=== PATIENT | male | born 1975 | race Caucasian/White ===

== ENCOUNTER 2020-03-03 07:25 | Inpatient (IN) | payer OTHER ==
[~2020-03-03] VITALS: Ht 180.3 cm; Wt 120.0 kg
[~2020-03-03 07:25] MED LIST: METH10SO PO
[2020-03-03] MEDS: LIDOCAINE 0.5% 50 ML VIAL INJ ONE ×2 (08:00→08:48)
[2020-03-03] MEDS ORDERED: SODIUM CHLORIDE 0.9% 1,000 ML IV ONE (08:00)
[2020-03-03] MEDS: ACETAMINOPHEN 325 MG TABLET PO ONE ×2 (08:00→08:10)
[2020-03-03] MEDS ORDERED: ONDANSETRON HCL 4 MG/2 ML VIAL IVP ONE (08:00)
[2020-03-03] MEDS ORDERED: VANCOMYCIN HCL 1.25 GM in DEXTROSE 5%-WATER 250 ML IV ONE (08:00)
[2020-03-03] MEDS ORDERED: CefTRIAXone 1 GM/DEXTROSE 50 ML IV ONE (08:00)
[2020-03-03] MEDS ORDERED: SODIUM CHLORIDE 0.9% 3,600 ML IV ONE (08:00)
[2020-03-03 08:39] LABS: BASOPHILS % (AUTO) 0.2 % (0.0-2.0); EOSINOPHILS % (AUTO) 0.7 % (1.0-6.0); HEMATOCRIT 45.4 % (41-53); HEMOGLOBIN 14.7 g/dL (13.5-17.5); LYMPHOCYTES # (AUTO) 1.7 K/uL (1.0-4.8); LYMPHOCYTES % (AUTO) 13.5 % (22.0-44.0); MEAN CORPUSCULAR HEMOGLOBIN 27.4 pg (26.0-34.0); MEAN CORPUSCULAR HGB CONC 32.4 G/dL (31.0-37.0); MEAN CORPUSCULAR VOLUME 84 fL (80-100); MONOCYTES # (AUTO) 1.3 K/uL (0.1-1.0); MONOCYTES % (AUTO) 9.9 % (2.0-9.0); NEUTROPHILS # (AUTO) 9.7 K/uL (1.8-7.7); NEUTROPHILS % (AUTO) 75.7 % (40.0-70.0); PLATELET COUNT (AUTO) 195 K/uL (150-450); RED BLOOD CELL COUNT(AUTO) 5.38 MIL/uL (4.50-5.90); RED CELL DISTRIBUTION WIDTH 14.5 % (11.5-14.5)
[2020-03-03 09:02] LABS: ANION GAP 13 mmol/L (8-16); CALCIUM, TOTAL 9.4 mg/dL (8.8-10.5); CARBON DIOXIDE 26 mmol/L (22-29); CHLORIDE 95 mmol/L (98-107); CREATININE 1.09 mg/dL (0.60-1.30); GLOMERULAR FILTR. RATE CALC > 60 mL/min (>60); GLUCOSE,RANDOM 383 mg/dL (70-110); POTASSIUM 3.9 mmol/L (3.5-5.1); SODIUM SERUM 134 mmol/L (136-145); UREA NITROGEN, BLOOD 16 mg/dL (7-18)
[2020-03-03 09:08] LABS: ALANINE AMINOTRANSFERASE 81 U/L (12-78); ALBUMIN 3.1 g/dL (3.4-5.0); ALKALINE PHOSPHATASE 59 U/L (46-116); ASPARTATE AMINOTRANSFERASE 64 U/L (15-37); BILIRUBIN,TOTAL 0.7 mg/dL (0.1-1.0); LIPASE 93 U/L (73-393); TOTAL PROTEIN, SERUM 9.4 g/dL (6.4-8.2)
[2020-03-03] MEDS ORDERED: LIDOCAINE 1% 10 ML VIAL INJ ONE (09:15)
[2020-03-03] MEDS ORDERED: ONDANSETRON HCL 4 MG/2 ML VIAL IVP PRN ×2 (10:00→14:15)
[2020-03-03] MEDS ORDERED: 0.9% SODIUM CHLORIDE 10 ML SYRINGE IVP PRN (10:00)
[2020-03-03] MEDS ORDERED: ACETAMINOPHEN 325 MG TABLET PO PRN ×2 (10:00→14:15)
[2020-03-03] MEDS ORDERED: MORPHINE SULFATE 4 MG/ML SYRINGE IVP ONE (10:45)
[2020-03-03] MEDS ORDERED: AZITHROMYCIN 500 MG/NS 250 ML IV ONE (11:15)
[2020-03-03 11:46] VITALS: BP 130/80
[2020-03-03] MEDS ORDERED: SODIUM CHLORIDE 0.9% 500 ML IV ONE (14:10)
[2020-03-03] MEDS ORDERED: MAGNESIUM HYDROXIDE SUSPENSION 30 ML UDCUP PO PRN (14:15)
[2020-03-03] MEDS ORDERED: BISACODYL 10 MG RECTAL RECTAL SUPPOSITORY PR PRN (14:15)
[2020-03-03] MEDS: MORPHINE SULFATE 2 MG/ML SYRINGE IVP PRN ×2 (14:42→20:05)
[2020-03-03 16:10] VITALS: BP 137/68
[2020-03-03] MEDS: HEPARIN SODIUM,PORCINE 5,000 UNITS/ML VIAL SQ SCH (17:41)
[2020-03-03] MEDS: VANCOMYCIN HCL 1.25 GM in DEXTROSE 5%-WATER 250 ML IV SCH (17:45)
[2020-03-03] MEDS: OxyCODONE HCL/ACETAMINOPHEN 10-325 MG TABLET PO PRN (17:59)
[2020-03-03 19:45] VITALS: BP 134/76
[2020-03-03] MEDS: DOCUSATE SODIUM 100 MG CAPSULE PO SCH (20:05)
[2020-03-03] MEDS: ZOLPIDEM TARTRATE 5 MG TABLET PO PRN (20:05)
[2020-03-04] MEDS: HEPARIN SODIUM,PORCINE 5,000 UNITS/ML VIAL SQ SCH ×3 (00:07→15:36)
[2020-03-04] MEDS: VANCOMYCIN HCL 1.25 GM in DEXTROSE 5%-WATER 250 ML IV SCH ×3 (00:08→15:19)
[2020-03-04] MEDS: MORPHINE SULFATE 2 MG/ML SYRINGE IVP PRN ×3 (02:32→20:06)
[2020-03-04 05:00] VITALS: BP 145/93
[2020-03-04] MEDS: OxyCODONE HCL/ACETAMINOPHEN 10-325 MG TABLET PO PRN ×2 (05:12→18:39)
[2020-03-04 08:30] LABS: APPEARANCE,URINE CLEAR (CLEAR); BILIRUBIN,URINE NEGATIVE (NEGATIVE); GLUCOSE, URINE (UA) 250 mg/dL (NEGATIVE); KETONES,URINE NEGATIVE (NEGATIVE); LEUKOCYTE ESTERASE ,URINE NEGATIVE (NEGATIVE); NITRATE,URINE NEGATIVE (NEGATIVE); OCCULT BLOOD,URINE NEGATIVE (NEGATIVE); PROTEIN,URINE NEGATIVE (NEGATIVE)
[2020-03-04 08:39] LABS: BACTERIA,URINE None Seen /HPF (None Seen); RBC,URINE None Seen /HPF (0-2); WBC,URINE None Seen /HPF (0-5)
[2020-03-04 08:49] VITALS: BP 135/70
[2020-03-04] MEDS: DOCUSATE SODIUM 100 MG CAPSULE PO SCH ×2 (09:00→21:00)
[2020-03-04] MEDS: PANTOPRAZOLE SODIUM 40 MG DR TABLET PO SCH (09:00)
[2020-03-04] MEDS: METHADONE HCL 10 MG/5 ML SOLUTION ORAL.SYG PO SCH (09:24)
[2020-03-04] MEDS ORDERED: RINGERS SOLUTION,LACTATED 1,000 ML IV ONE ×2 (10:00→10:04)
[2020-03-04 10:35] LABS: BASOPHILS % (AUTO) 0.7 % (0.0-2.0); HEMATOCRIT 40.6 % (41-53); HEMOGLOBIN 13.4 g/dL (13.5-17.5); LYMPHOCYTES # (AUTO) 2.3 K/uL (1.0-4.8); LYMPHOCYTES % (AUTO) 37.1 % (22.0-44.0); MEAN CORPUSCULAR HEMOGLOBIN 27.8 pg (26.0-34.0); MEAN CORPUSCULAR VOLUME 84 fL (80-100); MONOCYTES # (AUTO) 0.6 K/uL (0.1-1.0); MONOCYTES % (AUTO) 9.6 % (2.0-9.0); NEUTROPHILS # (AUTO) 3.1 K/uL (1.8-7.7); NEUTROPHILS % (AUTO) 49.6 % (40.0-70.0); PLATELET COUNT (AUTO) 175 K/uL (150-450); RED BLOOD CELL COUNT(AUTO) 4.82 MIL/uL (4.50-5.90); RED CELL DISTRIBUTION WIDTH 14.3 % (11.5-14.5)
[2020-03-04 10:45] LABS: ANION GAP 6 mmol/L (8-16); CALCIUM, TOTAL 8.8 mg/dL (8.8-10.5); CARBON DIOXIDE 29 mmol/L (22-29); CHLORIDE 100 mmol/L (98-107); GLOMERULAR FILTR. RATE CALC > 60 mL/min (>60); GLUCOSE,RANDOM 296 mg/dL (70-110); POTASSIUM 3.9 mmol/L (3.5-5.1); SODIUM SERUM 135 mmol/L (136-145); UREA NITROGEN, BLOOD 13 mg/dL (7-18)
[2020-03-04] MEDS ORDERED: INSULIN REGULAR, HUMAN 100 UNITS/ML SQ ONE (10:45)
[2020-03-04 11:22] LABS: INR 1.1 (0.9-1.1)
[2020-03-04 11:23] LABS: GLUCOMETER DEV NAME(LOC) 6S.1; GLUCOSE,POINT OF CARE 285 MG/DL (70-110)
[2020-03-04] MEDS ORDERED: FentaNYL CITRATE-PF 100 MCG/2 ML VIAL IVP PRN (11:30)
[2020-03-04] MEDS ORDERED: MEPERIDINE-PF 25 MG/ML VIAL IVP PRN (11:30)
[2020-03-04] MEDS ORDERED: MORPHINE SULFATE 4 MG/ML SYRINGE IVP PRN (12:00)
[2020-03-04] MEDS ORDERED: HYDROmorphone 2 MG/ML SYRINGE IVP PRN (12:00)
[2020-03-04] MEDS ORDERED: HYDROmorphone 2 MG/ML SYRINGE ONE (12:12)
[2020-03-04] MEDS: HYDROmorphone 2 MG/ML SYRINGE IVP PRN ×2 (12:15→12:25)
[2020-03-04] MEDS ORDERED: MEPERIDINE-PF 25 MG/ML VIAL ONE (12:26)
[2020-03-04 13:30] VITALS: BP 121/73
[2020-03-04 15:38] VITALS: BP 144/80
[2020-03-04] MEDS: OXYGEN THERAPY IH SCH (20:00)
[2020-03-04] MEDS: NICOTINE 14 MG/24 HOUR PATCH TD SCH (20:07)
[2020-03-04 20:09] VITALS: BP 143/85
[2020-03-04] MEDS: ZOLPIDEM TARTRATE 5 MG TABLET PO PRN (20:27)
[2020-03-05] MEDS: VANCOMYCIN HCL 1.25 GM in DEXTROSE 5%-WATER 250 ML IV SCH ×3 (00:25→16:04)
[2020-03-05] MEDS: MORPHINE SULFATE 2 MG/ML SYRINGE IVP PRN ×6 (00:42→22:39)
[2020-03-05 00:48] VITALS: BP 133/73
[2020-03-05] MEDS ORDERED: SUCCINYLCHOLINE CHLORIDE 20 MG/ML 10 ML VIAL IVP ONE (05:22)
[2020-03-05] MEDS ORDERED: PROPOFOL 1% 20 ML VIAL IVP ONE (05:22)
[2020-03-05] MEDS ORDERED: ONDANSETRON HCL 4 MG/2 ML VIAL IVP ONE (05:22)
[2020-03-05] MEDS ORDERED: DEXAMETHASONE SOD PHOS 4 MG/ML VIAL IVP ONE (05:22)
[2020-03-05 06:56] LABS: GLUCOMETER DEV NAME(LOC) 6S.1; GLUCOSE,POINT OF CARE 392 MG/DL (70-110)
[2020-03-05 08:00] LABS: ANION GAP 12 mmol/L (8-16); CALCIUM, TOTAL 9.4 mg/dL (8.8-10.5); CARBON DIOXIDE 25 mmol/L (22-29); CHLORIDE 98 mmol/L (98-107); CREATININE 1.02 mg/dL (0.60-1.30); GLOMERULAR FILTR. RATE CALC > 60 mL/min (>60); POTASSIUM 3.8 mmol/L (3.5-5.1); SODIUM SERUM 135 mmol/L (136-145); UREA NITROGEN, BLOOD 22 mg/dL (7-18)
[2020-03-05] MEDS: OXYGEN THERAPY IH SCH ×2 (08:00→20:00)
[2020-03-05 08:14] LABS: GLUCOSE,RANDOM 407 mg/dL (70-110)
[2020-03-05 08:24] VITALS: BP 110/70
[2020-03-05] MEDS ORDERED: INSULIN LISPRO 100 UNITS/ML SQ ONE ×2 (08:30→17:15)
[2020-03-05] MEDS ORDERED: INSULIN LISPRO 100 UNITS/ML SQ PRN (08:30)
[2020-03-05] MEDS ORDERED: DEXTROSE 50%-WATER 25 GM/50 ML SYRINGE IVP PRN ×2 (08:30→17:15)
[2020-03-05] MEDS: METHADONE HCL 10 MG/5 ML SOLUTION ORAL.SYG PO SCH (08:39)
[2020-03-05] MEDS: HEPARIN SODIUM,PORCINE 5,000 UNITS/ML VIAL SQ SCH ×4 (08:41→22:40)
[2020-03-05] MEDS: PANTOPRAZOLE SODIUM 40 MG DR TABLET PO SCH (08:44)
[2020-03-05] MEDS: DOCUSATE SODIUM 100 MG CAPSULE PO SCH ×2 (08:44→22:14)
[2020-03-05] MEDS: NICOTINE 14 MG/24 HOUR PATCH TD SCH (10:18)
[2020-03-05 11:54] VITALS: BP 134/86
[2020-03-05 15:48] VITALS: BP 135/62
[2020-03-05] MEDS: NICOTINE 21 MG/24 HOUR PATCH TD SCH (16:06)
[2020-03-05] MEDS: OxyCODONE HCL/ACETAMINOPHEN 10-325 MG TABLET PO PRN ×3 (16:07→21:59)
[2020-03-05 17:04] LABS: GLUCOMETER DEV NAME(LOC) 6N.2; GLUCOSE,POINT OF CARE 388 MG/DL (70-110)
[2020-03-05] MEDS: MetFORMIN HCL 500 MG TABLET PO SCH (17:06)
[2020-03-05 17:36] LABS: GLUCOMETER DEV NAME(LOC) 6S.1; GLUCOSE,POINT OF CARE 478 MG/DL (70-110)
[2020-03-05 20:11] VITALS: BP 130/87
[2020-03-05] MEDS: ZOLPIDEM TARTRATE 5 MG TABLET PO PRN (21:59)
[2020-03-05] MEDS: INSULIN LISPRO 100 UNITS/ML SQ PRN (22:12)
[2020-03-05 22:29] LABS: GLUCOMETER DEV NAME(LOC) 6N.2; GLUCOSE,POINT OF CARE 369 MG/DL (70-110)
[2020-03-06] MEDS: VANCOMYCIN HCL 1.25 GM in DEXTROSE 5%-WATER 250 ML IV SCH ×3 (00:17→17:10)
[2020-03-06] MEDS: MORPHINE SULFATE 2 MG/ML SYRINGE IVP PRN ×6 (03:02→23:33)
[2020-03-06] MEDS: OxyCODONE HCL/ACETAMINOPHEN 10-325 MG TABLET PO PRN ×2 (05:41→12:55)
[2020-03-06] MEDS: MetFORMIN HCL 500 MG TABLET PO SCH ×2 (05:41→17:11)
[2020-03-06] MEDS: INSULIN LISPRO 100 UNITS/ML SQ PRN ×4 (05:45→20:57)
[2020-03-06] MEDS ORDERED: MIDAZOLAM HCL 2 MG/2 ML VIAL IVP ONE (06:05)
[2020-03-06] MEDS ORDERED: FentaNYL CITRATE-PF 100 MCG/2 ML VIAL IVP ONE (06:05)
[2020-03-06 06:18] LABS: GLUCOMETER DEV NAME(LOC) 6N.2; GLUCOSE,POINT OF CARE 196 MG/DL (70-110)
[2020-03-06] MEDS: PANTOPRAZOLE SODIUM 40 MG DR TABLET PO SCH (08:27)
[2020-03-06] MEDS: METHADONE HCL 10 MG/5 ML SOLUTION ORAL.SYG PO SCH (08:27)
[2020-03-06] MEDS: NICOTINE 21 MG/24 HOUR PATCH TD SCH (08:27)
[2020-03-06] MEDS: DOCUSATE SODIUM 100 MG CAPSULE PO SCH ×3 (08:27→21:00)
[2020-03-06] MEDS: HEPARIN SODIUM,PORCINE 5,000 UNITS/ML VIAL SQ SCH ×2 (08:28→17:11)
[2020-03-06 11:35] LABS: GLUCOMETER DEV NAME(LOC) 6N.2; GLUCOSE,POINT OF CARE 337 MG/DL (70-110)
[2020-03-06] MEDS: ALPRAZolam 0.5 MG TABLET PO PRN (17:11)
[2020-03-06] MEDS: GlipiZIDE 5 MG TABLET PO SCH (17:11)
[2020-03-06 18:01] LABS: GLUCOMETER DEV NAME(LOC) 6N.2; GLUCOSE,POINT OF CARE 229 MG/DL (70-110)
[2020-03-06] MEDS: ZOLPIDEM TARTRATE 5 MG TABLET PO PRN (23:41)
[2020-03-07] MEDS: VANCOMYCIN HCL 1.25 GM in DEXTROSE 5%-WATER 250 ML IV SCH ×2 (00:33→09:50)
[2020-03-07] MEDS: HEPARIN SODIUM,PORCINE 5,000 UNITS/ML VIAL SQ SCH ×4 (00:33→23:52)
[2020-03-07] MEDS: MetFORMIN HCL 500 MG TABLET PO SCH ×2 (06:19→17:32)
[2020-03-07] MEDS: GlipiZIDE 5 MG TABLET PO SCH ×2 (06:20→17:33)
[2020-03-07] MEDS: MORPHINE SULFATE 2 MG/ML SYRINGE IVP PRN (06:31)
[2020-03-07] MEDS: INSULIN LISPRO 100 UNITS/ML SQ PRN ×4 (06:35→21:05)
[2020-03-07 06:38] LABS: GLUCOMETER DEV NAME(LOC) 6S.1; GLUCOSE,POINT OF CARE 313 MG/DL (70-110)
[2020-03-07] MEDS: OXYGEN THERAPY IH SCH ×2 (08:00→20:00)
[2020-03-07 08:50] VITALS: BP 157/74
[2020-03-07] MEDS: OxyCODONE HCL/ACETAMINOPHEN 10-325 MG TABLET PO PRN (09:51)
[2020-03-07] MEDS: PANTOPRAZOLE SODIUM 40 MG DR TABLET PO SCH (09:51)
[2020-03-07] MEDS: DOCUSATE SODIUM 100 MG CAPSULE PO SCH ×2 (09:51→20:54)
[2020-03-07] MEDS: METHADONE HCL 10 MG/5 ML SOLUTION ORAL.SYG PO SCH (09:51)
[2020-03-07] MEDS: MULTIVITAMINS WITH MINERALS, THERAPEUTIC TABLET PO SCH (09:52)
[2020-03-07] MEDS: NICOTINE 21 MG/24 HOUR PATCH TD SCH (09:52)
[2020-03-07 10:51] LABS: ANION GAP 9 mmol/L (8-16); CALCIUM, TOTAL 9.9 mg/dL (8.8-10.5); CARBON DIOXIDE 25 mmol/L (22-29); CHLORIDE 98 mmol/L (98-107); CREATININE 1.04 mg/dL (0.60-1.30); GLOMERULAR FILTR. RATE CALC > 60 mL/min (>60); GLUCOSE,RANDOM 219 mg/dL (70-110); POTASSIUM 4.7 mmol/L (3.5-5.1); SODIUM SERUM 132 mmol/L (136-145); UREA NITROGEN, BLOOD 22 mg/dL (7-18); VANCOMYCIN,RANDOM 26.8 mcg/mL (25.0-50.0)
[2020-03-07 11:19] LABS: GLUCOMETER DEV NAME(LOC) 6N.2; GLUCOSE,POINT OF CARE 182 MG/DL (70-110)
[2020-03-07 11:44] LABS: GLUCOMETER DEV NAME(LOC) 6N.2; GLUCOSE,POINT OF CARE 218 MG/DL (70-110)
[2020-03-07] MEDS: ALPRAZolam 0.5 MG TABLET PO PRN ×2 (11:44→23:49)
[2020-03-07] MEDS: HYDROmorphone HCL 2 MG TABLET PO PRN ×2 (13:03→20:54)
[2020-03-07 15:15] VITALS: BP 118/63
[2020-03-07 17:27] LABS: BASOPHILS % (AUTO) 0.5 % (0.0-2.0); EOSINOPHILS % (AUTO) 3.5 % (1.0-6.0); HEMATOCRIT 45.4 % (41-53); HEMOGLOBIN 14.6 g/dL (13.5-17.5); LYMPHOCYTES # (AUTO) 3.2 K/uL (1.0-4.8); LYMPHOCYTES % (AUTO) 37.3 % (22.0-44.0); MEAN CORPUSCULAR HEMOGLOBIN 27.3 pg (26.0-34.0); MEAN CORPUSCULAR HGB CONC 32.3 G/dL (31.0-37.0); MEAN CORPUSCULAR VOLUME 85 fL (80-100); MONOCYTES % (AUTO) 12.3 % (2.0-9.0); NEUTROPHILS # (AUTO) 3.9 K/uL (1.8-7.7); NEUTROPHILS % (AUTO) 46.4 % (40.0-70.0); RED BLOOD CELL COUNT(AUTO) 5.37 MIL/uL (4.50-5.90); RED CELL DISTRIBUTION WIDTH 14.4 % (11.5-14.5)
[2020-03-07 17:56] LABS: GLUCOMETER DEV NAME(LOC) 6S.1; GLUCOSE,POINT OF CARE 263 MG/DL (70-110)
[2020-03-07 19:26] LABS: PLATELET COUNT (AUTO) 96 K/uL (150-450)
[2020-03-07 20:00] VITALS: BP 140/97
[2020-03-07] MEDS: ZOLPIDEM TARTRATE 5 MG TABLET PO PRN (20:54)
[2020-03-07 21:12] LABS: GLUCOMETER DEV NAME(LOC) 6N.2; GLUCOSE,POINT OF CARE 214 MG/DL (70-110)
[2020-03-07 23:49] VITALS: BP 124/64
[2020-03-08] MEDS: HYDROmorphone HCL 2 MG TABLET PO PRN (05:20)
[2020-03-08] MEDS: INSULIN LISPRO 100 UNITS/ML SQ PRN ×2 (05:54→12:07)
[2020-03-08] MEDS: MetFORMIN HCL 500 MG TABLET PO SCH (06:40)
[2020-03-08] MEDS: GlipiZIDE 5 MG TABLET PO SCH (06:41)
[2020-03-08] MEDS ORDERED: VANCOMYCIN HCL 1.25 GM in DEXTROSE 5%-WATER 250 ML IV SCH (08:00)
[2020-03-08] MEDS: OXYGEN THERAPY IH SCH (08:00)
[2020-03-08 08:06] LABS: ANION GAP 10 mmol/L (8-16); CALCIUM, TOTAL 9.5 mg/dL (8.8-10.5); CARBON DIOXIDE 25 mmol/L (22-29); CHLORIDE 100 mmol/L (98-107); CREATININE 0.95 mg/dL (0.60-1.30); GLOMERULAR FILTR. RATE CALC > 60 mL/min (>60); GLUCOSE,RANDOM 316 mg/dL (70-110); POTASSIUM 4.3 mmol/L (3.5-5.1); SODIUM SERUM 135 mmol/L (136-145); UREA NITROGEN, BLOOD 21 mg/dL (7-18)
[2020-03-08] MEDS: NICOTINE 21 MG/24 HOUR PATCH TD SCH (08:46)
[2020-03-08] MEDS: MULTIVITAMINS WITH MINERALS, THERAPEUTIC TABLET PO SCH (08:47)
[2020-03-08] MEDS: DOCUSATE SODIUM 100 MG CAPSULE PO SCH (08:47)
[2020-03-08] MEDS: METHADONE HCL 10 MG/5 ML SOLUTION ORAL.SYG PO SCH (08:47)
[2020-03-08] MEDS: PANTOPRAZOLE SODIUM 40 MG DR TABLET PO SCH (08:48)
[2020-03-08] MEDS: HEPARIN SODIUM,PORCINE 5,000 UNITS/ML VIAL SQ SCH (08:49)
[2020-03-08] MEDS: ALPRAZolam 0.5 MG TABLET PO PRN (09:46)
[2020-03-08 10:10] VITALS: BP 105/51
[2020-03-08 12:33] LABS: GLUCOMETER DEV NAME(LOC) 6S.1; GLUCOSE,POINT OF CARE 307 MG/DL (70-110)
[2020-03-08 12:33] LABS: GLUCOMETER DEV NAME(LOC) 6S.1; GLUCOSE,POINT OF CARE 192 MG/DL (70-110)
[2020-03-08] MEDS ORDERED: SULF1TAB42 PO ×2 (13:13→15:39)
[2020-03-08] MEDS ORDERED: METF-960 PO ×2 (13:13→15:39)
[2020-03-08] MEDS ORDERED: CEPH500 PO (13:13)
[2020-03-08] MEDS ORDERED: GLIP5 PO (13:13)
[2020-03-08] MEDS ORDERED: SODIUM CHLORIDE 0.9% IRRIG BTL 1,000 ML IRRIG ONE (13:17)
[2020-03-08] MEDS ORDERED: CEPH-582 PO (15:39)
[2020-03-08] MEDS ORDERED: GLIP10 PO (15:39)
[2020-03-08] MEDS ORDERED: CEPHALEXIN MONOHYDRATE 500 MG CAPSULE PO SCH (16:00)
== END 2020-03-08 15:00 | disposition home or self-care (01) | DRG 710 ==
LOC: EMS 07:25 → 6N 10:31
PROVIDERS: ADMIT Internal Medicine; ATTEND Internal Medicine
PROC: 05HY33Z Insertion of Infusion Device into Upper Vein, Percutaneous Approach (ICD-10-PCS; 2020-03-03)
PROC: B54MZZA Ultrasonography of Right Upper Extremity Veins, Guidance (ICD-10-PCS; 2020-03-03)
PROC: 0K9 Muscles, Drainage (ICD-10-PCS; principal; 2020-03-04 11:00)
DX: A41.9 Sepsis, unspecified organism (principal); E11.52 Type 2 diabetes mellitus with diabetic peripheral angiopathy with gangrene; E44.0 Moderate protein-calorie malnutrition; I38 Endocarditis, valve unspecified; E11.65 Type 2 diabetes mellitus with hyperglycemia; L02.413 Cutaneous abscess of right upper limb; L03.113 Cellulitis of right upper limb; F19.20 Other psychoactive substance dependence, uncomplicated; F17.210 Nicotine dependence, cigarettes, uncomplicated; F11.90 Opioid use, unspecified, uncomplicated; R74.0 Nonspecific elevation of levels of transaminase and lactic acid dehydrogenase [LDH]; Z91.19 Patient's noncompliance with other medical treatment and regimen; Z20.828 Contact with and (suspected) exposure to other viral communicable diseases; K75.9 Inflammatory liver disease, unspecified; Z68.36 Body mass index [BMI] 36.0-36.9, adult
CPT/HCPCS: 36569; 83036; 83605; 87040; 87070; 87205; 93005; J0330; J0456; J0690; J0696; J1100; J1170; J1644; J1815; J2175; J2250; J2270; J2405; J2704; J3010; J3370; J3490; J7030; J7040; J7060; J7120

== ENCOUNTER 2020-06-15 11:33 | Inpatient (IN) | payer MEDICAID, OTHER ==
[~2020-06-15] VITALS: Ht 175.3 cm; Wt 105.7 kg
[2020-06-15] MEDS: MetFORMIN HCL 500 MG TABLET PO SCH (09:27)
[~2020-06-15 11:33] MED LIST changes: +CEPH-582 PO; +GLIP10 PO; +METF-960 PO; -METH10SO PO; +SULF1TAB42 PO
[2020-06-15] MEDS ORDERED: HYDROmorphone 2 MG/ML SYRINGE IVP ONE ×2 (12:30→16:15)
[2020-06-15] MEDS ORDERED: SODIUM CHLORIDE 0.9% 1,000 ML IV ONE (12:30)
[2020-06-15] MEDS ORDERED: INSULIN REGULAR, HUMAN 100 UNITS/ML IVP ONE (12:30)
[2020-06-15] MEDS ORDERED: ONDANSETRON HCL 4 MG/2 ML VIAL IVP ONE (12:30)
[2020-06-15] MEDS ORDERED: VANCOMYCIN HCL 1 GM/D5% WATER 200 ML IV ONE ×2 (12:30→18:00)
[2020-06-15 13:04] LABS: BASOPHILS % (AUTO) 0.4 % (0.0-2.0); EOSINOPHILS % (AUTO) 2.1 % (1.0-6.0); HEMATOCRIT 42.4 % (41-53); HEMOGLOBIN 14.2 g/dL (13.5-17.5); LYMPHOCYTES # (AUTO) 1.9 K/uL (1.0-4.8); LYMPHOCYTES % (AUTO) 20.2 % (22.0-44.0); MEAN CORPUSCULAR HEMOGLOBIN 28.2 pg (26.0-34.0); MEAN CORPUSCULAR HGB CONC 33.5 G/dL (31.0-37.0); MEAN CORPUSCULAR VOLUME 84 fL (80-100); MONOCYTES # (AUTO) 1.2 K/uL (0.1-1.0); NEUTROPHILS # (AUTO) 6.2 K/uL (1.8-7.7); NEUTROPHILS % (AUTO) 64.3 % (40.0-70.0); PLATELET COUNT (AUTO) 152 K/uL (150-450); RED BLOOD CELL COUNT(AUTO) 5.03 MIL/uL (4.50-5.90); RED CELL DISTRIBUTION WIDTH 14.6 % (11.5-14.5)
[2020-06-15 13:19] LABS: ALANINE AMINOTRANSFERASE 80 U/L (12-78); ALBUMIN 2.9 g/dL (3.4-5.0); ALKALINE PHOSPHATASE 74 U/L (46-116); ANION GAP 7 mmol/L (8-16); ASPARTATE AMINOTRANSFERASE 53 U/L (15-37); BILIRUBIN,TOTAL 0.4 mg/dL (0.1-1.0); C-REACTIVE PROTEIN QUANT 7.16 mg/dL (0.00-0.30); CALCIUM, TOTAL 9.2 mg/dL (8.8-10.5); CARBON DIOXIDE 29 mmol/L (22-29); CHLORIDE 96 mmol/L (98-107); CREATINE KINASE, TOTAL ONLY 46 U/L (39-308); GLOMERULAR FILTR. RATE CALC > 60 mL/min (>60); LACTATE DEHYDROGENASE 142 U/L (85-227); LIPASE 60 U/L (73-393); POTASSIUM 3.9 mmol/L (3.5-5.1); SODIUM SERUM 132 mmol/L (136-145); TOTAL PROTEIN, SERUM 7.3 g/dL (6.4-8.2); UREA NITROGEN, BLOOD 15 mg/dL (7-18)
[2020-06-15 13:21] LABS: GLUCOSE,RANDOM 479 mg/dL (70-110)
[2020-06-15 13:29] LABS: AMPHET/METH SCREEN,URINE NEGATIVE (NEGATIVE); BARBITURATE SCREEN, URINE NEGATIVE (NEGATIVE); BENZODIAZEPINES SCREEN,URINE NEGATIVE (NEGATIVE); CANNABINOID SCREEN,URINE POSITIVE (NEGATIVE); COCAINE SCREEN,URINE NEGATIVE (NEGATIVE); METHADONE SCREEN, URINE POSITIVE (NEGATIVE); OPIATE SCREEN,URINE POSITIVE (NEGATIVE)
[2020-06-15 13:30] LABS: ACETONE,BLOOD NEGATIVE (NEGATIVE)
[2020-06-15 13:32] LABS: PHENCYCLIDINE SCREEN,URINE NEGATIVE (NEGATIVE)
[2020-06-15 13:35] LABS: PROTHROMBIN TIME 10.7 SEC (9.4-11.6)
[2020-06-15] MEDS ORDERED: GLIP10 PO (13:40)
[2020-06-15 13:43] LABS: LACTIC ACID 2.1 mmol/L (0.4-2.0)
[2020-06-15] MEDS ORDERED: PERTUSS(ACELL),DIPH,TET VAC/PF 0.5 ML VIAL IM ONE ×2 (13:45→14:30)
[2020-06-15 13:46] LABS: B-TYPE NATRIURETIC PEPTIDE 44 pg/mL (0-100)
[2020-06-15 13:54] LABS: COVID AG,FIA SOURCE NASOPHARYNGEAL
[2020-06-15 14:07] LABS: APPEARANCE,URINE CLEAR (CLEAR); BILIRUBIN,URINE NEGATIVE (NEGATIVE); GLUCOSE, URINE (UA) >=1000 mg/dL (NEGATIVE); KETONES,URINE NEGATIVE (NEGATIVE); LEUKOCYTE ESTERASE ,URINE NEGATIVE (NEGATIVE); NITRATE,URINE NEGATIVE (NEGATIVE); OCCULT BLOOD,URINE NEGATIVE (NEGATIVE); PH,URINE 5.5 (5.0-8.0); PROTEIN,URINE NEGATIVE (NEGATIVE)
[2020-06-15 14:08] LABS: BACTERIA,URINE None Seen /HPF (None Seen); RBC,URINE None Seen /HPF (0-2); WBC,URINE None Seen /HPF (0-5)
[2020-06-15] MEDS ORDERED: 0.9% SODIUM CHLORIDE 10 ML SYRINGE IVP PRN (14:30)
[2020-06-15] MEDS ORDERED: ONDANSETRON HCL 4 MG/2 ML VIAL IVP PRN ×2 (14:30→15:30)
[2020-06-15] MEDS ORDERED: LORazepam 2 MG/ML VIAL IVP ONE ×2 (14:30→16:15)
[2020-06-15] MEDS ORDERED: ACETAMINOPHEN 325 MG TABLET PO PRN ×2 (14:30→15:30)
[2020-06-15 14:33] LABS: GLUCOSE,POINT OF CARE 268 MG/DL (70-110)
[2020-06-15] MEDS ORDERED: GADOBUTROL 1 MMOL/ML 10 ML VIAL IVP ONE (15:06)
[2020-06-15] MEDS ORDERED: INSULIN LISPRO 100 UNITS/ML SQ PRN (15:30)
[2020-06-15] MEDS ORDERED: DEXTROSE 50%-WATER 25 GM/50 ML SYRINGE IVP PRN (15:30)
[2020-06-15] MEDS ORDERED: BISACODYL 10 MG RECTAL RECTAL SUPPOSITORY PR PRN (15:30)
[2020-06-15] MEDS ORDERED: MAGNESIUM HYDROXIDE SUSPENSION 30 ML UDCUP PO PRN (15:30)
[2020-06-15] MEDS ORDERED: SODIUM CHLORIDE 0.9% 0 ML ONE (16:07)
[2020-06-15] MEDS ORDERED: IOVERSOL 350 MG/ML 150 ML VIAL ONE (16:07)
[2020-06-15 18:28] LABS: GLUCOSE,POINT OF CARE 510 MG/DL (70-110)
[2020-06-15 19:30] VITALS: BP 127/72
[2020-06-15] MEDS: HYDROmorphone 2 MG/ML SYRINGE IVP PRN (20:09)
[2020-06-15] MEDS: DOCUSATE SODIUM 100 MG CAPSULE PO SCH (20:09)
[2020-06-15] MEDS ORDERED: MAGNESIUM OXIDE 400 MG TABLET PO ONE (21:00)
[2020-06-15] MEDS ORDERED: INSULIN LISPRO 100 UNITS/ML SQ ONE (21:00)
[2020-06-15] MEDS: INSULIN LISPRO 100 UNITS/ML SQ PRN (21:37)
[2020-06-15] MEDS ORDERED: PNEUMOCOCCAL VACCINE POLYVALENT 0.5 ML VIAL [PPSV23] IM ONE (22:45)
[2020-06-15] MEDS ORDERED: INFLUENZA VIRUS VACCINE QVS 2020-21 (6MO+)/PF 60 MCG/0.5 ML SYRINGE IM ONE (22:45)
[2020-06-15 23:54] VITALS: BP 131/71
[2020-06-16] MEDS: MORPHINE SULFATE 2 MG/ML SYRINGE IVP PRN ×5 (00:06→17:48)
[2020-06-16] MEDS: VANCOMYCIN HCL 1.25 GM in DEXTROSE 5%-WATER 250 ML IV SCH ×3 (00:06→16:00)
[2020-06-16] MEDS ORDERED: SODIUM CHLORIDE 0.9% 500 ML IV ONE (00:08)
[2020-06-16] MEDS: HYDROmorphone 2 MG/ML SYRINGE IVP PRN (02:08)
[2020-06-16 04:12] VITALS: BP 128/65
[2020-06-16 06:19] LABS: GLUCOMETER DEV NAME(LOC) 5N.3; GLUCOSE,POINT OF CARE 495 MG/DL (70-110)
[2020-06-16] MEDS ORDERED: LIDOCAINE 1%/EPI 1:200,000/PF 30 ML VIAL ONE (06:26)
[2020-06-16] MEDS ORDERED: BACITRACIN 50,000 UNITS/VIAL ONE (06:27)
[2020-06-16] MEDS ORDERED: SODIUM CHLORIDE 0.9% 0 ML ONE (06:28)
[2020-06-16] MEDS ORDERED: SODIUM CL IRRIG SOLN BAG 0 ML IRRIG ONE (06:28)
[2020-06-16] MEDS ORDERED: RINGERS SOLUTION,LACTATED 1,000 ML IV ONE (06:29)
[2020-06-16] MEDS: GlipiZIDE 10 MG TABLET PO SCH ×2 (06:30→16:29)
[2020-06-16] MEDS ORDERED: INSULIN REGULAR, HUMAN 100 UNITS/ML ONE (06:59)
[2020-06-16] MEDS ORDERED: FentaNYL CITRATE-PF 100 MCG/2 ML VIAL IVP PRN (07:00)
[2020-06-16] MEDS ORDERED: MEPERIDINE-PF 25 MG/ML VIAL IVP PRN (07:00)
[2020-06-16] MEDS ORDERED: HYDROmorphone 2 MG/ML SYRINGE IVP PRN (07:00)
[2020-06-16 07:11] LABS: GLUCOMETER DEV NAME(LOC) SDS.; GLUCOSE,POINT OF CARE 335 MG/DL (70-110)
[2020-06-16] MEDS ORDERED: INSULIN REGULAR, HUMAN 100 UNITS/ML IVP ONE (07:15)
[2020-06-16] MEDS ORDERED: HYDROGEN PEROXIDE 473 ML SOLUTION ONE (07:22)
[2020-06-16] MEDS ORDERED: SUGAMMADEX SODIUM 200 MG/2 ML VIAL IVP ONE ×2 (07:46→07:47)
[2020-06-16] MEDS: OXYGEN THERAPY IH SCH ×2 (08:00→20:23)
[2020-06-16 08:41] LABS: GLUCOMETER DEV NAME(LOC) SDS.; GLUCOSE,POINT OF CARE 289 MG/DL (70-110)
[2020-06-16] MEDS ORDERED: HYDROmorphone 2 MG/ML SYRINGE ONE (08:53)
[2020-06-16] MEDS: PANTOPRAZOLE SODIUM 40 MG DR TABLET PO SCH (09:20)
[2020-06-16] MEDS: DOCUSATE SODIUM 100 MG CAPSULE PO SCH ×2 (09:20→20:22)
[2020-06-16] MEDS: HEPARIN SODIUM,PORCINE 5,000 UNITS/ML VIAL SQ SCH ×4 (09:21→16:30)
[2020-06-16 09:30] VITALS: BP 124/72
[2020-06-16] MEDS: MetFORMIN HCL 500 MG TABLET PO SCH ×2 (09:41→16:29)
[2020-06-16 11:01] VITALS: BP 148/99
[2020-06-16] MEDS: METHADONE HCL 10 MG TABLET PO SCH (11:11)
[2020-06-16] MEDS: INSULIN GLARGINE,HUM.REC.ANLOG 100 UNITS/ML SQ SCH (11:37)
[2020-06-16] MEDS: INSULIN LISPRO 100 UNITS/ML SQ PRN ×3 (11:38→20:21)
[2020-06-16] MEDS ORDERED: PROPOFOL 1% 20 ML VIAL IVP ONE (12:00)
[2020-06-16] MEDS ORDERED: LIDOCAINE/PF 2% 5 ML VIAL INJ ONE (12:00)
[2020-06-16] MEDS ORDERED: ONDANSETRON HCL 4 MG/2 ML VIAL IVP ONE (12:00)
[2020-06-16] MEDS ORDERED: SUCCINYLCHOLINE CHLORIDE 20 MG/ML 10 ML VIAL IVP ONE (12:00)
[2020-06-16] MEDS ORDERED: ROCURONIUM BROMIDE 10 MG/ML 5 ML VIAL IVP ONE (12:00)
[2020-06-16 16:10] VITALS: BP 150/59
[2020-06-16 18:44] LABS: GLUCOMETER DEV NAME(LOC) 5S.1; GLUCOSE,POINT OF CARE 360 MG/DL (70-110)
[2020-06-16 19:42] VITALS: BP 141/70
[2020-06-16] MEDS: HYDROCODONE/ACETAMINOPHEN 5-325 MG TABLET PO PRN (20:33)
[2020-06-16] MEDS: ZOLPIDEM TARTRATE 5 MG TABLET PO PRN (20:42)
[2020-06-16 23:54] VITALS: BP 148/73
[2020-06-17] MEDS: MORPHINE SULFATE 2 MG/ML SYRINGE IVP PRN ×4 (01:07→13:28)
[2020-06-17 05:26] VITALS: BP 146/78
[2020-06-17 06:12] LABS: BASOPHILS % (AUTO) 0.5 % (0.0-2.0); EOSINOPHILS % (AUTO) 3.7 % (1.0-6.0); HEMATOCRIT 41.7 % (41-53); HEMOGLOBIN 13.8 g/dL (13.5-17.5); LYMPHOCYTES # (AUTO) 2.4 K/uL (1.0-4.8); LYMPHOCYTES % (AUTO) 30.5 % (22.0-44.0); MEAN CORPUSCULAR HEMOGLOBIN 28.1 pg (26.0-34.0); MEAN CORPUSCULAR HGB CONC 33.2 G/dL (31.0-37.0); MEAN CORPUSCULAR VOLUME 85 fL (80-100); MONOCYTES % (AUTO) 12.2 % (2.0-9.0); NEUTROPHILS # (AUTO) 4.2 K/uL (1.8-7.7); NEUTROPHILS % (AUTO) 53.1 % (40.0-70.0); PLATELET COUNT (AUTO) 158 K/uL (150-450); RED BLOOD CELL COUNT(AUTO) 4.92 MIL/uL (4.50-5.90); RED CELL DISTRIBUTION WIDTH 14.3 % (11.5-14.5)
[2020-06-17] MEDS: GlipiZIDE 10 MG TABLET PO SCH ×2 (06:18→17:03)
[2020-06-17] MEDS: HYDROCODONE/ACETAMINOPHEN 5-325 MG TABLET PO PRN ×2 (06:27→10:23)
[2020-06-17 06:36] LABS: ANION GAP 5 mmol/L (8-16); CALCIUM, TOTAL 9.5 mg/dL (8.8-10.5); CARBON DIOXIDE 32 mmol/L (22-29); CHLORIDE 102 mmol/L (98-107); CREATININE 0.77 mg/dL (0.60-1.30); GLOMERULAR FILTR. RATE CALC > 60 mL/min (>60); GLUCOSE,RANDOM 237 mg/dL (70-110); POTASSIUM 4.3 mmol/L (3.5-5.1); SODIUM SERUM 139 mmol/L (136-145); UREA NITROGEN, BLOOD 15 mg/dL (7-18); VANCOMYCIN,RANDOM 3.1 mcg/mL (25.0-50.0)
[2020-06-17 07:45] VITALS: BP 124/78
[2020-06-17] MEDS: OXYGEN THERAPY IH SCH ×2 (08:00→20:00)
[2020-06-17] MEDS: VANCOMYCIN HCL 1.25 GM in DEXTROSE 5%-WATER 250 ML IV SCH ×6 (08:00→23:10)
[2020-06-17] MEDS: HEPARIN SODIUM,PORCINE 5,000 UNITS/ML VIAL SQ SCH ×4 (08:01→23:10)
[2020-06-17] MEDS: PANTOPRAZOLE SODIUM 40 MG DR TABLET PO SCH (08:01)
[2020-06-17] MEDS: DOCUSATE SODIUM 100 MG CAPSULE PO SCH ×2 (08:02→20:49)
[2020-06-17] MEDS: METHADONE HCL 10 MG TABLET PO SCH (08:02)
[2020-06-17] MEDS: INSULIN GLARGINE,HUM.REC.ANLOG 100 UNITS/ML SQ SCH (08:08)
[2020-06-17 08:28] LABS: GLUCOMETER DEV NAME(LOC) 5N.3; GLUCOSE,POINT OF CARE 243 MG/DL (70-110)
[2020-06-17 08:28] LABS: GLUCOMETER DEV NAME(LOC) 5N.3; GLUCOSE,POINT OF CARE 313 MG/DL (70-110)
[2020-06-17 08:28] LABS: GLUCOMETER DEV NAME(LOC) 5N.3; GLUCOSE,POINT OF CARE 370 MG/DL (70-110)
[2020-06-17] MEDS: MetFORMIN HCL 500 MG TABLET PO SCH ×2 (08:30→17:03)
[2020-06-17 09:41] LABS: GLUCOMETER DEV NAME(LOC) 5S.1; GLUCOSE,POINT OF CARE 232 MG/DL (70-110)
[2020-06-17 09:41] LABS: GLUCOMETER DEV NAME(LOC) 5S.1; GLUCOSE,POINT OF CARE 171 MG/DL (70-110)
[2020-06-17 10:33] LABS: BAND NEUTROPHILS % (MANUAL) 0 % (0-5)
[2020-06-17 10:43] LABS: HEMATOCRIT 41.8 % (41-53); HEMOGLOBIN 13.9 g/dL (13.5-17.5); MEAN CORPUSCULAR HEMOGLOBIN 27.9 pg (26.0-34.0); MEAN CORPUSCULAR HGB CONC 33.2 G/dL (31.0-37.0); MEAN CORPUSCULAR VOLUME 84 fL (80-100); PLATELET COUNT (AUTO) 111 K/uL (150-450); RED BLOOD CELL COUNT(AUTO) 4.97 MIL/uL (4.50-5.90); RED CELL DISTRIBUTION WIDTH 14.2 % (11.5-14.5)
[2020-06-17 10:56] LABS: ANION GAP 5 mmol/L (8-16); CALCIUM, TOTAL 9.2 mg/dL (8.8-10.5); CARBON DIOXIDE 31 mmol/L (22-29); CHLORIDE 100 mmol/L (98-107); CREATININE 0.96 mg/dL (0.60-1.30); GLOMERULAR FILTR. RATE CALC > 60 mL/min (>60); GLUCOSE,RANDOM 361 mg/dL (70-110); POTASSIUM 4.2 mmol/L (3.5-5.1); SODIUM SERUM 136 mmol/L (136-145); UREA NITROGEN, BLOOD 14 mg/dL (7-18)
[2020-06-17 11:21] LABS: EOSINOPHILS % (MANUAL) 3 % (1-6); LYMPHOCYTES % (MANUAL) 30 % (22-44); MONOCYTES % (MANUAL) 6 % (2-9); SEGMENTED NEUTROPHILS % 61 % (40-70)
[2020-06-17 11:50] VITALS: BP 126/80
[2020-06-17] MEDS: INSULIN LISPRO 100 UNITS/ML SQ PRN ×3 (12:00→20:50)
[2020-06-17] MEDS ORDERED: OxyCODONE HCL/ACETAMINOPHEN 10-325 MG TABLET PO PRN (14:45)
[2020-06-17] MEDS: OxyCODONE HCL/ACETAMINOPHEN 10-325 MG TABLET PO PRN ×2 (14:52→20:52)
[2020-06-17 15:43] VITALS: BP 115/62
[2020-06-17 19:36] VITALS: BP 119/68
[2020-06-17 20:01] LABS: GLUCOMETER DEV NAME(LOC) 4E.2; GLUCOSE,POINT OF CARE 208 MG/DL (70-110)
[2020-06-17 20:37] LABS: GLUCOMETER DEV NAME(LOC) 5N.3; GLUCOSE,POINT OF CARE 329 MG/DL (70-110)
[2020-06-17] MEDS: ZOLPIDEM TARTRATE 5 MG TABLET PO PRN (20:49)
[2020-06-17 21:20] LABS: GLUCOMETER DEV NAME(LOC) 4E.2; GLUCOSE,POINT OF CARE 164 MG/DL (70-110)
[2020-06-18] MEDS: OxyCODONE HCL/ACETAMINOPHEN 10-325 MG TABLET PO PRN ×2 (02:58→08:58)
[2020-06-18 04:00] VITALS: BP 118/65
[2020-06-18 06:05] LABS: GLUCOMETER DEV NAME(LOC) 4E.2; GLUCOSE,POINT OF CARE 208 MG/DL (70-110)
[2020-06-18] MEDS: GlipiZIDE 10 MG TABLET PO SCH (06:51)
[2020-06-18] MEDS: INSULIN LISPRO 100 UNITS/ML SQ PRN ×2 (06:54→11:24)
[2020-06-18] MEDS: DOCUSATE SODIUM 100 MG CAPSULE PO SCH (08:02)
[2020-06-18] MEDS: METHADONE HCL 10 MG TABLET PO SCH (08:03)
[2020-06-18] MEDS: MetFORMIN HCL 500 MG TABLET PO SCH (08:03)
[2020-06-18] MEDS: PANTOPRAZOLE SODIUM 40 MG DR TABLET PO SCH (08:03)
[2020-06-18] MEDS: HEPARIN SODIUM,PORCINE 5,000 UNITS/ML VIAL SQ SCH (08:04)
[2020-06-18] MEDS: INSULIN GLARGINE,HUM.REC.ANLOG 100 UNITS/ML SQ SCH (08:12)
[2020-06-18] MEDS ORDERED: BACTDSB PO (10:33)
[2020-06-18] MEDS ORDERED: SODIUM CL IRRIG SOLN BOTTLE 250 ML IRRIG ONE (11:34)
[2020-06-18 12:11] LABS: GLUCOMETER DEV NAME(LOC) 6S.1; GLUCOSE,POINT OF CARE 205 MG/DL (70-110)
[2020-06-19] MEDS ORDERED: MULTIVITAMINS WITH MINERALS, THERAPEUTIC TABLET PO SCH (09:00)
== END 2020-06-18 12:00 | disposition home or self-care (01) | DRG 361 ==
LOC: EMS 11:37 → 5S 15:25 → 6N 06-17 12:25
PROVIDERS: ADMIT Internal Medicine; ATTEND Internal Medicine
PROC: 0XB30ZZ Excision of Left Shoulder Region, Open Approach (ICD-10-PCS; 2020-06-16)
PROC: 0J9F0ZZ Drainage of Left Upper Arm Subcutaneous Tissue and Fascia, Open Approach (ICD-10-PCS; principal; 2020-06-16 07:30)
DX: L02.414 Cutaneous abscess of left upper limb (principal); E44.0 Moderate protein-calorie malnutrition; E87.1 Hypo-osmolality and hyponatremia; F19.19 Other psychoactive substance abuse with unspecified psychoactive substance-induced disorder; E11.65 Type 2 diabetes mellitus with hyperglycemia; E66.9 Obesity, unspecified; Z68.34 Body mass index [BMI] 34.0-34.9, adult; I38 Endocarditis, valve unspecified; F17.200 Nicotine dependence, unspecified, uncomplicated; Z91.19 Patient's noncompliance with other medical treatment and regimen; Z03.818 Encounter for observation for suspected exposure to other biological agents ruled out
CPT/HCPCS: 72156; 72157; 72158; 83605; 83615; 83735; 85007; 86140; 87040; 87070; 87205; 87426; 90715; 93005; 93306; A9585; G0378; G0480; J0330; J1170; J1644; J1815; J2060; J2270; J2405; J2704; J3370; J3490; J7030; J7040; J7050; J7060; J7120; 36415-L1; 36415-TC; 71045-TC; 80202-TC

== ENCOUNTER 2021-12-31 06:55 | Emergency (ER) | payer OTHER ==
[~2021-12-31] VITALS: Ht 177.8 cm; Wt 104.5 kg
[~2021-12-31 06:55] MED LIST changes: +BACTDSB PO; -CEPH-582 PO; +METF-1211 PO; -METF-960 PO; -SULF1TAB42 PO
[2021-12-31] MEDS ORDERED: METH5SOL3 PO (07:16)
[2021-12-31] MEDS ORDERED: BUPIVACAINE HCL/PF 0.25% 10 ML VIAL SQ ONE (07:30)
[2021-12-31] MEDS ORDERED: POVIDONE-IODINE 10% 120 ML SOLUTION TP ONE (07:30)
[2021-12-31] MEDS ORDERED: SULF-261 PO (07:56)
[2021-12-31] MEDS ORDERED: CEPH-558 PO (07:56)
[2021-12-31 08:15] VITALS: BP 134/71
== END 2021-12-31 08:40 | disposition home or self-care (01) ==
LOC: EMS 07:00
DX: L02.413 Cutaneous abscess of right upper limb (principal); E11.9 Type 2 diabetes mellitus without complications; F17.210 Nicotine dependence, cigarettes, uncomplicated; F11.90 Opioid use, unspecified, uncomplicated; Z79.84 Long term (current) use of oral hypoglycemic drugs
CPT/HCPCS: 10060; 82962; 99283; J3490

== ENCOUNTER 2022-02-15 06:45 | Emergency (ER) | payer OTHER ==
[~2022-02-15] VITALS: Ht 177.8 cm; Wt 109.1 kg
[~2022-02-15 06:45] MED LIST changes: -BACTDSB PO; +CEPH-558 PO; -GLIP10 PO; +GLIP10TA10 PO; +METH5SOL3 PO; +SULF-261 PO
[2022-02-15 07:06] LABS: GLUCOSE,POINT OF CARE 185 MG/DL (70-110)
[2022-02-15] MEDS ORDERED: LIDOCAINE 1% 10 ML VIAL ID ONE (07:15)
[2022-02-15] MEDS ORDERED: CEPHALEXIN MONOHYDRATE 500 MG CAPSULE PO ONE (07:15)
[2022-02-15] MEDS ORDERED: SULFAMETHOX/TRIMETH DS 800-160 MG/TABLET PO ONE (07:15)
[2022-02-15 07:18] VITALS: BP 130/69
[2022-02-15] MEDS ORDERED: SULF-261 PO (07:49)
[2022-02-15] MEDS ORDERED: CEPH-558 PO (07:49)
== END 2022-02-15 08:01 | disposition home or self-care (01) ==
LOC: EMS 06:46
DX: L02.31 Cutaneous abscess of buttock (principal); F11.10 Opioid abuse, uncomplicated; E11.9 Type 2 diabetes mellitus without complications; F17.210 Nicotine dependence, cigarettes, uncomplicated; Z79.84 Long term (current) use of oral hypoglycemic drugs; Z79.899 Other long term (current) drug therapy
CPT/HCPCS: 10060; 82962; 99283; J3490